=== PATIENT | male | born 1990 | race Caucasian/White ===

== ENCOUNTER 2020-08-19 19:45 | Emergency (ER) | payer OTHER ==
[~2020-08-19] VITALS: Ht 185.4 cm; Wt 83.9 kg
[2020-08-19 20:11] LABS: HEMOGLOBIN 14.9 gm/dL (14.0-18.0); MCH 31.1 pg (26.0-34.0); MCHC 35.6 g/dL (28.0-37.0); MCV 87.3 fL (80.0-100.0); MPV 8.7 fl. (7.2-11.1); RBC 4.81 mil/uL (4.50-6.00); RDW-CV 12.6 % (10.5-14.5); WBC 4.1 thou/uL (4.0-11.0)
[2020-08-19 20:19] LABS: CALCIUM 9.4 mg/dL (8.5-10.1); POTASSIUM 3.3 mmol/L (3.5-5.1)
[2020-08-19 20:23] LABS: ALBUMIN 4.6 g/dL (3.4-5.0); TOTAL BILIRUBIN 1.7 mg/dL (<0.1-1.0); TOTAL PROTEIN 7.6 g/dL (6.4-8.2)
[2020-08-19 20:27] LABS: ACETAMINOPHEN < 2 ug/mL (10-30); ALCOHOL < 10 mg/dL (<10); SALICYLATE < 2.8 mg/dL (2.8-20.0)
[2020-08-19 21:01] LABS: URINE BILIRUBIN NEGATIVE (Negative); URINE BLOOD NEGATIVE (Negative); URINE COLOR YELLOW; URINE GLUCOSE-RANDOM NEGATIVE (Negative); URINE KETONES NEGATIVE (Negative); URINE LEUKOCYTES 1+ (Negative); URINE NITRITE NEGATIVE (Negative); URINE PROTEIN 1+ (Negative)
[2020-08-19 21:02] LABS: URINE CLARITY HAZY
[2020-08-19 21:08] LABS: AMP/METHAMP Negative (Negative); BARBITURATES Negative (Negative); BENZODIAZEPINES Negative (Negative); COCAINE Negative (Negative); METHADONE Negative (Negative); OPIATES Negative (Negative); PCP Negative (Negative); THC POSITIVE (Negative)
[2020-08-19 21:13] LABS: BACTERIA >30 Many /HPF (None Seen); CASTS None Seen /LPF (None Seen); CRYSTALS None Seen /LPF (None Seen); MUCUS 0-3 Light strn/LPF (None Seen); SQUAMOUS 0-3 Few /LPF (0-3); URINE RBC None Seen /HPF (0-2); URINE WBC >25 Many /HPF (0-5)
[2020-08-19 21:24] VITALS: BP 133/72
--- NOTE | 2020-08-20 10:09 | EKG ---
[place] [address] ELECTROCARDIOGRAM REPORT Name: RASHIVIRGINIAMAGALIS MELENDREZ Room: [facility]#: [id number] Admission: 08/19/20 Attend Phys: Discharge: 08/19/20 Date of : 89 Date of Service: 08/19/201946 Report #: [id number] THIS REPORT FOR: //name// [facility] ED Test Date: 2020-08-19 Test Time: 19:47:59 Pat Name: MAGALIS DENT Department: Room: Gender: Perinatal Educator: CHIQUITA : 1990 Requested By: Saida Jonas Order Number: [id number] MD: Trent Rai Measurements Intervals [place] Rate: 87 P: 53 MO: 169 QRS: 67 QRSD: 88 T: 68 QT: 378 QTc: 455 Interpretive Statements Sinus rhythm No previous ECG available for comparison Electronically Signed On 08-20-2020 10:09:13 [employer] by Trent Rai [email or web address] <ELECTRONICALLY SIGNED> By: Trent Rai MD, [facility] 08/20/20 [id number] Trent Rai MD, FACC /EPI
== END 2020-08-19 21:25 | disposition home or self-care (01) ==
LOC: M.ERS 19:45
PROVIDERS: Personal Emergency Response Attendant
DX: T40.2X1A Poisoning by other opioids, accidental (unintentional), initial encounter (principal); Y92.89 Other specified places as the place of occurrence of the external cause